=== PATIENT | female | born 2000 | race Caucasian/White ===

== ENCOUNTER 2019-03-09 12:06 | Inpatient (IN) | payer OTHER ==
[2019-03-09 13:53] LABS: ADD UMIC YES; UR ASCORBIC ACID NEGATIVE (NEGATIVE); UR BACTERIA FEW /HPF (NONE SEEN); UR BILIRUBIN (Dip) NEGATIVE (NEGATIVE); UR BLOOD (Dip) NEGATIVE (NEGATIVE); UR CLARITY CLEAR (CLEAR); UR COLOR YELLOW (YELLOW); UR GLUCOSE (Dip) NEGATIVE (NEGATIVE); UR KETONES (Dip) NEGATIVE (NEGATIVE); UR LEUKOCYTE ESTERASE (Dip) 1+ Leu/ul (NEGATIVE); UR NITRITE (Dip) NEGATIVE (NEGATIVE); UR RBC 0 /HPF (0-5); UR SPECIFIC GRAVITY (Dip) 1.006 (1.003-1.030); UR SQUAMOUS EPITHELIAL CELL FEW /HPF (FEW); UR TOTAL PROTEIN (Dip) NEGATIVE (NEGATIVE); UR UROBILINOGEN (Dip) NEGATIVE (NEGATIVE); UR WBC 3 /HPF (0-5)
[2019-03-09 14:12] LABS: AMPHETAMINE/METHAMPHETAMINE Negative (NEGATIVE); BARBITURATES Negative (NEGATIVE); BENZODIAZEPINES Negative (NEGATIVE); CANNABINOIDS Negative (NEGATIVE); COCAINE Negative (NEGATIVE); OPIATES Negative (NEGATIVE)
[2019-03-09 14:15] LABS: RUPTURE FETAL MEMBRANES NEGATIVE (NEGATIVE)
[2019-03-09] MEDS ORDERED: CARBOPROST 250 MCG INJ IM ×2 (14:30→19:00)
[2019-03-09] MEDS ORDERED: LIDOCAINE 1% (MPF) 30 ML INJ INJ ×2 (14:30→19:00)
[2019-03-09] MEDS ORDERED: MISOPROSTOL 200 MCG TAB PR ×2 (14:30→19:00)
[2019-03-09] MEDS ORDERED: OXYTOCIN 30 UNITS/LR 500 ML IV ×6 (14:30→19:00)
[2019-03-09] MEDS ORDERED: METHYLERGONOVINE 0.2 MG INJ IM (14:30)
[2019-03-09] MEDS ORDERED: BUTORPHANOL 2 MG INJ IV ×2 (14:30)
[2019-03-09] MEDS: LACTATED RINGER'S 1,000 ML IV ×2 (15:24→22:06)
[2019-03-09 16:05] LABS: ADD MAN DIFF? NO
[2019-03-09 16:09] LABS: BASOPHILS % 0.1 % (0.0-2.0); EOSINOPHILS # 0.1 10^3/ul (0.0-0.5); HEMATOCRIT 33.9 % (37.0-47.0); HEMOGLOBIN 10.6 g/dl (12.0-16.0); LYMPHOCYTES # 1.9 10^3/ul (0.8-2.9); LYMPHOCYTES % 18.3 % (15.0-51.0); MEAN CORPUSCULAR HEMOGLOBIN 27.1 pg (29.0-33.0); MEAN CORPUSCULAR HGB CONC 31.3 g/dl (32.0-37.0); MEAN CORPUSCULAR VOLUME 86.7 fl (82.0-101.0); MEAN PLATELET VOLUME 12.4 fl (7.4-10.4); MONOCYTE # 0.7 10^3/ul (0.3-0.9); MONOCYTES % 6.9 % (0.0-11.0); NEUTROPHIL # 7.6 10^3/ul (1.6-7.5); NEUTROPHILS % 73.5 % (39.0-77.0); PLATELET COUNT 165 10^3/UL (140-415); RED BLOOD COUNT 3.91 10^6/ul (4.20-5.40); RED CELL DISTRIBUTION WIDTH 20.1 % (11.5-14.5)
[2019-03-09 16:09] LABS: WHITE BLOOD COUNT 10.4 10^3/ul (4.8-10.8)
[2019-03-09] MEDS: OXYTOCIN 30 UNITS/LR 500 ML IV (16:09)
[2019-03-09 16:28] LABS: PARTIAL THROMBOPLASTIN TIME 25.1 Sec (23.0-35.0); PROTIME 12.3 Sec (11.9-14.9)
[2019-03-09 17:00] LABS: HEPATITIS B SURFACE ANTIGEN NEGATIVE (NEGATIVE)
[2019-03-09 19:53] LABS: RAPID PLASMA REAGIN NONREACTIVE (NR)
[2019-03-10] MEDS: LACTATED RINGER'S 1,000 ML IV ×3 (04:37→18:34)
[2019-03-10] MEDS ORDERED: FENTAnyl 2MCG/ML-ROPIV 0.2% 100 ML (07:22)
[2019-03-10] MEDS ORDERED: FENTAnyl 2MCG/ML-ROPIV 0.2% 100 ML BAG EPI (08:00)
[2019-03-10] MEDS ORDERED: ONDANSETRON 4 MG INJ IV ×2 (08:00→18:30)
[2019-03-10] MEDS ORDERED: NALBUPHINE HCL (10 MG/1 ML) INJ IV (08:00)
[2019-03-10] MEDS ORDERED: NALOXONE (0.4 MG/ML) INJ IV (08:00)
[2019-03-10] MEDS ORDERED: DIPHENHYDRAMINE 50 MG INJ IV (08:00)
[2019-03-10 11:58] LABS: HIV 1&2 ANTIBODY NEGATIVE (NEGATIVE)
[2019-03-10] MEDS: OXYTOCIN 30 UNITS/LR 500 ML IV ×4 (13:56→18:18)
[2019-03-10] MEDS: METHYLERGONOVINE 0.2 MG INJ IM (13:56)
[2019-03-10 14:08] LABS: AADO2 Cord Arterial 71.4 mmHg; Arterial Cord Blood pCO2 49.3 mmHG (25-50); CBA Base Excess -0.5 mmol/L; CBA COHb 0.3 %; CBA Oxygen Sat 38.2 mmHG; CBA Total Hemglobin 17.2 g/dl; Cord Blood Arterial pO2 19.3 mmHG (15.0-45.0); Fraction OxyHgb Cord Arterial 37.8 %; MODE ROOM AIR; MetHgb Cord Arterial 0.8 %; Sample Type CBA; Site CORD
[2019-03-10] MEDS: IBUPROFEN 600 MG TAB PO ×2 (16:15→18:30)
[2019-03-10] MEDS ORDERED: ZOLPIDEM 5 MG TAB PO (18:30)
[2019-03-10] MEDS ORDERED: BENZOCAINE 20% 56 ML SPRAY TOP (18:30)
[2019-03-10] MEDS ORDERED: NACL 0.9% 3 ML SYG IV (18:30)
[2019-03-10] MEDS ORDERED: LANOLIN HPA 1 PKT TOP (18:30)
[2019-03-10] MEDS ORDERED: OXYTOCIN 30 UNITS/LR 500 ML IV (18:30)
[2019-03-10] MEDS ORDERED: METHYLERGONOVINE 0.2 MG INJ IM (18:30)
[2019-03-10] MEDS ORDERED: MISOPROSTOL 200 MCG TAB PR (18:30)
[2019-03-10] MEDS ORDERED: HYDROCODONE/APAP (5/325) TAB PO (18:30)
[2019-03-10] MEDS ORDERED: ACETAMINOPHEN 325 MG TAB PO (18:30)
[2019-03-10] MEDS ORDERED: CARBOPROST 250 MCG INJ IM (18:30)
[2019-03-10] MEDS ORDERED: SENNA/DOCUSATE NA (8.6MG/50MG) TAB PO (18:30)
[2019-03-10] MEDS ORDERED: MAGNESIUM HYDROXIDE 30ML CUP PO (18:30)
[2019-03-10] MEDS ORDERED: DIPHENHYDRAMINE 25 MG CAP PO (18:30)
[2019-03-11] MEDS: WITCH HAZEL/GLYCERIN PAD PR (00:02)
[2019-03-11] MEDS: BENZOCAINE 20% 56 ML SPRAY TOP (00:02)
[2019-03-11] MEDS: IBUPROFEN 600 MG TAB PO ×4 (00:02→17:41)
[2019-03-11] MEDS: LACTATED RINGER'S 1,000 ML IV ×3 (02:34→18:34)
[2019-03-11 06:43] LABS: ADD MAN DIFF? NO
[2019-03-11 06:46] LABS: BASOPHILS % 0.2 % (0.0-2.0); EOSINOPHILS # 0.1 10^3/ul (0.0-0.5); EOSINOPHILS % 0.9 % (0.0-7.0); HEMATOCRIT 28.1 % (37.0-47.0); HEMOGLOBIN 9.1 g/dl (12.0-16.0); LYMPHOCYTES # 2.3 10^3/ul (0.8-2.9); LYMPHOCYTES % 16.5 % (15.0-51.0); MEAN CORPUSCULAR HEMOGLOBIN 28.3 pg (29.0-33.0); MEAN CORPUSCULAR HGB CONC 32.4 g/dl (32.0-37.0); MEAN CORPUSCULAR VOLUME 87.3 fl (82.0-101.0); MEAN PLATELET VOLUME 12.6 fl (7.4-10.4); MONOCYTES % 7.3 % (0.0-11.0); NEUTROPHIL # 10.4 10^3/ul (1.6-7.5); NEUTROPHILS % 74.8 % (39.0-77.0); PLATELET COUNT 156 10^3/UL (140-415); RED BLOOD COUNT 3.22 10^6/ul (4.20-5.40); RED CELL DISTRIBUTION WIDTH 19.7 % (11.5-14.5)
[2019-03-11 06:46] LABS: WHITE BLOOD COUNT 13.9 10^3/ul (4.8-10.8)
[2019-03-12] MEDS: IBUPROFEN 600 MG TAB PO ×3 (00:22→12:44)
[2019-03-12] MEDS: LACTATED RINGER'S 1,000 ML IV (02:34)
[2019-03-12] MEDS: DIPHTH/TET/ACEL PERTUSS (ADULT) 0.5 ML VIAL IM* (08:38)
[2019-03-12] MEDS: MEASLES,MUMPS,RUBELLA VACCINE INJ SC* (08:39)
[2019-03-12 12:57] LABS: RUBELLA ANTIBODY - IGM <20.00 AU/mL
[2019-03-12 19:23] LABS: RUBELLA ANTIBODY - IGG 2.76 index
== END 2019-03-12 14:20 | disposition home or self-care (01) | DRG 833 ==
LOC: OBT 12:06 → PP1 03-10 16:26 → L-D 12:06 → OBT 14:15 → L-D 14:15
PROC: 10D07Z6 Extraction of Products of Conception, Vacuum, Via Natural or Artificial Opening (ICD-10-PCS; principal; 2019-03-10)
PROC: 3E033VJ Introduction of Other Hormone into Peripheral Vein, Percutaneous Approach (ICD-10-PCS; 2019-03-10)
DX: O66.8 Other specified obstructed labor (principal); O66.5 Attempted application of vacuum extractor and forceps; Z3A.39 39 weeks gestation of pregnancy
CPT/HCPCS: 36600; 62322; 76815; 76818; 80307; 81001; 82803; 84112; 85025; 85610; 85730; 86592; 86703; 86762; 86850; 86900; 86901; 87340; 99464